=== PATIENT | male | born 1980 | race Caucasian/White ===

== ENCOUNTER 2022-03-16 14:33 | Emergency (ER) | payer BC ==
[2022-03-16] MEDS ORDERED: hydrOXYzine 25 MG TAB ONE (17:05)
== END 2022-03-16 18:53 | disposition home or self-care (01) ==
LOC: CSHERS 14:33
DX: F10.129 Alcohol abuse with intoxication, unspecified (principal); F17.210 Nicotine dependence, cigarettes, uncomplicated; Y90.8 Blood alcohol level of 240 mg/100 ml or more
CPT/HCPCS: 36415; 80307; 99284

== ENCOUNTER 2022-04-09 18:55 | Emergency (ER) | payer BC, OTHER ==
[2022-04-09 20:22] LABS: Amphetamine Not Detected (NotDetected); Barbiturates Screen Not Detected (NotDetected); Benzodiazepine Screen Detected (NotDetected); Cocaine Metabolite Screen Not Detected (NotDetected); Methadone Not Detected (NotDetected); Methamphetamine Not Detected (NotDetected); Opiate Screen Not Detected (NotDetected); Oxycodone Screen Not Detected (NotDetected); Phencyclidine (PCP) Not Detected (NotDetected); THC/Cannabinoid Screen Not Detected (NotDetected); Tricyclic Screen Not Detected (NotDetected)
[2022-04-09 20:31] LABS: #Basophils 0.1 10x3/uL (0.0-0.2); #Monocytes 0.7 10x3/uL (0.0-1.1); #Neutrophils 1.8 10x3/uL (1.5-8.4); %Basophils 1.1 % (0.0-2.0); %Eosinophils 0.2 % (0.0-6.0); %Lymphocytes 43.5 % (18.0-47.0); Acetaminophen Less than 10.0 mcg/mL (10.0-30.0); Alcohol 315 mg/dL (Less than 10); Hemoglobin 14.6 g/dL (13.5-17.5); Mean Corpuscular HGB CONC 34.4 g/dL (32.0-36.0); Mean Corpuscular Volume 95.7 fl (81.2-95.1); Mean Platelet Volume 8.5 fl (7.4-10.4); Platelet Count 253 10x3/uL (150-450); RBC Distribution Width 13.5 % (11.5-14.5); Red Blood Cell (RBC) Count 4.43 10x6/uL (4.32-5.72); Salicylate Less than 8.0 mg/dL (15.0-30.0); White Blood Cell (WBC) Count 4.5 10x3/uL (3.5-10.5)
[2022-04-09 20:32] LABS: ALT (SGPT) 24 U/L (8-55); AST (SGOT) 26 U/L (5-34); Albumin 4.5 g/dL (3.5-5.0); Alkaline Phosphatase 76 U/L (40-110); Anion Gap 16 mmol/L (10-20); BUN (Urea Nitrogen) 6 mg/dL (8.9-20.6); Bilirubin, Total 0.3 mg/dL (0.2-1.2); Calc. Creatinine Clearance 0 mL/min (70-130); Calcium 9.4 mg/dL (7.8-10.44); Carbon Dioxide 29 mmol/L (22-29); Chloride 103 mmol/L (98-107); Estimated GFR 115; Globulin 2.9 g/dL (2.4-3.5); Glucose 96 mg/dL (70-105); Potassium 4.3 mmol/L (3.5-5.1); Protein, Total 7.4 g/dL (6.0-8.3); Sodium 144 mmol/L (136-145)
[2022-04-09] MEDS ORDERED: Gabapentin 300 MG CAP ONE (23:09)
[2022-04-09] MEDS ORDERED: lamoTRIgine 100 MG TAB PO SCH (23:30)
[2022-04-09] MEDS ORDERED: busPIRone HCl 15 MG TAB PO SCH (23:30)
[2022-04-10 13:36] LABS: SARS-CoV-2 NAA Rapid Test Not Detected (NotDetected)
[2022-04-10] MEDS ORDERED: chlordiazePOXIDE HCl 25 MG CAP ONE (16:32)
[2022-04-10] MEDS ORDERED: Lorazepam 1 MG TAB ONE (20:34)
[2022-04-10] MEDS ORDERED: busPIRone HCl 15 MG TAB PO SCH (23:00)
[2022-04-10] MEDS ORDERED: traZODone HCl 150 MG TAB PO SCH (23:00)
[2022-04-10] MEDS ORDERED: lamoTRIgine 100 MG TAB PO SCH (23:00)
[2022-04-10] MEDS ORDERED: Gabapentin 300 MG CAP PO SCH (23:00)
== END 2022-04-11 14:17 | disposition home or self-care (01) ==
LOC: CSHERS 18:55
DX: F10.129 Alcohol abuse with intoxication, unspecified (principal); F17.210 Nicotine dependence, cigarettes, uncomplicated; Y90.8 Blood alcohol level of 240 mg/100 ml or more; Z20.822 Contact with and (suspected) exposure to COVID-19
CPT/HCPCS: 80053; 80306; 80307; 84443; 85025; 99285; U0002